=== PATIENT | female | born 1940 | race Caucasian/White ===

== ENCOUNTER 2017-10-30 12:15 | Inpatient (IN) | payer OTHER ==
[2017-10-30] VITALS (14 sets, daily range): BP systolic 108–156; BP diastolic 58–90
[~2017-10-30] VITALS: Ht 157.5 cm; Wt 73.6 kg
[2017-10-30 13:07] LABS: BASOPHIL (%) 0.3 % (0-1); EOSINOPHIL (%) 0.1 % (0-5); HEMATOCRIT 37.9 % (36.0-46.0); HEMOGLOBIN 12.5 G/DL (11.9-15.5); IMMATURE GRANULOCYTE (%) 0.3 % (0.0-0.7); LYMPHOCYTE (%) 7.3 % (15-42); LYMPHOCYTE COUNT 1.1 K/uL (1.0-2.8); MCH 29.8 PG (29.0-34.0); MCV 90.2 FL (83-99); MONOCYTE (%) 2.7 % (3-12); MONOCYTE COUNT 0.4 K/uL (0-0.8); NEUTROPHIL (%) 89.3 % (45-76); NEUTROPHIL COUNT 13.7 K/uL (1.8-6.4); PLATELET COUNT 89 K/uL (156-360); RBC DIS.WIDTH-CV 13.8 % (11.8-14.6); RBC DIS.WIDTH-SD 44.7 % (39-53); WHITE BLOOD COUNT 15.3 K/uL (4.1-10.2)
[2017-10-30 13:17] LABS: ALBUMIN 3.7 g/dL (3.2-4.8); CHLORIDE 105 mEq/L (99-109); POTASSIUM 3.5 mEq/L (3.7-5.4); SODIUM 138 mEq/L (136-147)
[2017-10-30 13:19] LABS: GLUCOSE 164 mg/dL (70-99); TOTAL PROTEIN 6.7 g/dL (6.4-8.3)
[2017-10-30 13:21] LABS: TOTAL BILIRUBIN 0.3 mg/dL (0.0-1.0)
[2017-10-30 13:23] LABS: ALKALINE PHOSPHATASE 83 IU/L (3-129); CREATININE 0.7 mg/dL (0.6-1.3); GFR ESTIMATE (CALCULATED) > 59 mL/min/
[2017-10-30 13:24] LABS: UREA NITROGEN (BUN) 12 mg/dL (9-23)
[2017-10-30 13:25] LABS: AST (GOT) 39 IU/L (2-34)
[2017-10-30 13:26] LABS: ALT (GPT) 11 IU/L (3-49)
[2017-10-30 13:29] LABS: TROP-I INTERPRETATION POSITIVE
[2017-10-30 13:32] LABS: TROPONIN-I 2.76 ng/mL (0.0-0.30)
[2017-10-30 14:47] LABS: INTER. NORMALIZED RATIO 1.2
[2017-10-30 15:37] LABS: AMYLASE 46 IU/L (1-118)
[2017-10-30 15:38] LABS: MAGNESIUM 1.7 mg/dL (1.3-2.7)
[2017-10-30 15:42] LABS: SERUM ETHYL ALCOHOL < 10 mg/dL
[2017-10-30 15:46] LABS: CREATINE KINASE 443 IU/L (1-294); LIPASE 208 U/L (1.0-51.0); TOTAL CK 443 IU/L (1-294)
[2017-10-30 15:48] LABS: PTT 161.8 SEC (25-37)
[2017-10-30 15:52] LABS: CK-MB 54.9 ng/mL (0.0-4.9); CKMB RELATIVE INDEX 12.4 (0.0-3.9)
[2017-10-31] VITALS (16 sets, daily range): BP systolic 101–125; BP diastolic 57–74
[2017-10-31 00:54] LABS: TOTAL CK 1715 IU/L (1-294)
[2017-10-31 01:00] LABS: TROP-I INTERPRETATION POSITIVE
[2017-10-31 01:02] LABS: CKMB RELATIVE INDEX 9.8 (0.0-3.9)
[2017-10-31 01:13] LABS: CK-MB 168.9 ng/mL (0.0-4.9); CREATINE KINASE 1715 IU/L (1-294)
[2017-10-31 01:17] LABS: TROPONIN-I 68.43 ng/mL (0.0-0.30)
[2017-10-31 05:37] LABS: BASOPHIL (%) 0.3 % (0-1); EOSINOPHIL (%) 0.2 % (0-5); HEMATOCRIT 38.9 % (36.0-46.0); HEMOGLOBIN 12.3 G/DL (11.9-15.5); IMMATURE GRANULOCYTE (%) 0.3 % (0.0-0.7); LYMPHOCYTE (%) 13.2 % (15-42); MCH 28.9 PG (29.0-34.0); MCHC 31.6 G/DL (30.0-36.0); MCV 91.5 FL (83-99); MONOCYTE COUNT 1.1 K/uL (0-0.8); NEUTROPHIL COUNT 12.1 K/uL (1.8-6.4); RBC DIS.WIDTH-SD 47.4 % (39-53); RED BLOOD COUNT 4.25 M/uL (3.80-5.20); WHITE BLOOD COUNT 15.4 K/uL (4.1-10.2)
[2017-10-31 05:39] LABS: PLATELET COUNT 146 K/uL (156-360)
[2017-10-31 06:13] LABS: TROP-I INTERPRETATION POSITIVE; TROPONIN-I 61.91 ng/mL (0.0-0.30)
[2017-10-31 06:40] LABS: CHLORIDE 106 MEQ/L (99-109); CREATININE 0.5 MG/DL (0.6-1.3); GFR ESTIMATE (CALCULATED) > 59 mL/min/; GLUCOSE 136 mg/dL (70-99); HDL CHOLESTEROL 36 MG/DL (Desirable>=50); LDL CHOLESTEROL 130 mg/dL (Desirable<100); NON-HDL CHOLESTEROL 147 mg/dL (Desirable<160); SODIUM 136 MEQ/L (136-147); TOTAL CHOLESTEROL 183 mg/dL (Desirable<200); TOTAL CK 1011 IU/L (1-294); TRIGLYCERIDES 85 MG/DL (Normal: <150); UREA NITROGEN (BUN) 9 mg/dL (9-23)
[2017-10-31 06:44] LABS: CREATINE KINASE 1011 IU/L (1-294); POTASSIUM 4.4 MEQ/L (3.7-5.4)
[2017-10-31 10:32] LABS: HEMOGLOBIN A1c (GLYCOHEMOGLOB) 6.1 % (Below 5.7)
[2017-10-31 12:40] LABS: TROP-I INTERPRETATION POSITIVE; TROPONIN-I 38.98 ng/mL (0.0-0.30)
[2017-10-31 12:42] LABS: CREATINE KINASE 743 IU/L (1-294); TOTAL CK 743 IU/L (1-294)
[2017-10-31 14:03] LABS: CKMB RELATIVE INDEX 9.7 (0.0-3.9)
[2017-11-01 04:31] VITALS: BP 125/71
[2017-11-01 07:55] VITALS: BP 98/55
[2017-11-01 11:47] VITALS: BP 128/84
[2017-11-01 14:31] VITALS: BP 137/62
[2017-11-01 22:15] VITALS: BP 108/53
[2017-11-02] VITALS (12 sets, daily range): BP systolic 78–128; BP diastolic 49–88
[2017-11-02 07:07] LABS: CHLORIDE 104 MEQ/L (99-109); CREATININE 0.7 MG/DL (0.6-1.3); GFR ESTIMATE (CALCULATED) > 59 mL/min/; GLUCOSE 119 mg/dL (70-99); POTASSIUM 3.9 MEQ/L (3.7-5.4); SODIUM 139 MEQ/L (136-147); UREA NITROGEN (BUN) 13 mg/dL (9-23)
[2017-11-02 10:02] LABS: CHLORIDE 101 MEQ/L (99-109); CREATININE 0.6 MG/DL (0.6-1.3); GFR ESTIMATE (CALCULATED) > 59 mL/min/; GLUCOSE 156 mg/dL (70-99); HEMOGLOBIN 11.8 G/DL (11.9-15.5); MCH 29.5 PG (29.0-34.0); MCHC 32.8 G/DL (30.0-36.0); POTASSIUM 3.7 MEQ/L (3.7-5.4); RBC DIS.WIDTH-CV 13.6 % (11.8-14.6); RBC DIS.WIDTH-SD 45.2 % (39-53); SODIUM 137 MEQ/L (136-147); UREA NITROGEN (BUN) 13 mg/dL (9-23); WHITE BLOOD COUNT 13.2 K/uL (4.1-10.2)
[2017-11-02 10:04] LABS: PLATELET CLUMPS PRESENT
[2017-11-02 10:07] LABS: THYROTROPIN (TSH) 9.5 MIU/L (0.4-5.5)
[2017-11-02 10:11] LABS: TROP-I INTERPRETATION POSITIVE; TROPONIN-I 14.39 ng/mL (0.0-0.30)
[2017-11-03 00:03] VITALS: BP 122/61
[2017-11-03 05:16] VITALS: BP 117/58
[2017-11-03 07:11] LABS: CHLORIDE 103 MEQ/L (99-109); CREATININE 0.6 MG/DL (0.6-1.3); GFR ESTIMATE (CALCULATED) > 59 mL/min/; GLUCOSE 126 mg/dL (70-99); POTASSIUM 3.5 MEQ/L (3.7-5.4); SODIUM 137 MEQ/L (136-147); UREA NITROGEN (BUN) 11 mg/dL (9-23)
[2017-11-03 07:40] VITALS: BP 126/58
[2017-11-03 12:03] VITALS: BP 123/58
[2017-11-03] MEDS ORDERED: ATORVASTATIN CA80 MG PO (13:02)
[2017-11-03] MEDS ORDERED: LOSARTAN POTASS25 MG PO (13:02)
[2017-11-03] MEDS ORDERED: NITROSTAT0.4 MG SL (13:02)
[2017-11-03] MEDS ORDERED: ELIQUIS5 MG PO (13:02)
[2017-11-03] MEDS ORDERED: FAMOTIDINE20 MG PO (13:02)
[2017-11-03] MEDS ORDERED: LOPRESSOR25 MG PO (13:02)
[2017-11-03] MEDS ORDERED: ASPIR-LOW81 MG PO (13:02)
[2017-11-03] MEDS ORDERED: CLOPIDOGREL75 MG PO (13:02)
== END 2017-11-03 14:30 | disposition home or self-care (01) | DRG 247 ==
LOC: EME 12:15 → CATH 12:32 → EME 12:32 → ENRESERV 13:11 → 4EAST 13:36 → 4WEST 13:36 → 2SOUTH 13:36 → ENRESERV 13:43 → 4WEST 14:00 → ENRESERV 10-31 18:22 → 4EAST 10-31 19:52
PROVIDERS: Emergency Medicine; Internal Medicine; Internal Medicine Cardiovascular Disease
DX: I21.09 ST elevation (STEMI) myocardial infarction involving other coronary artery of anterior wall (principal); I48.0 Paroxysmal atrial fibrillation; I25.10 Atherosclerotic heart disease of native coronary artery without angina pectoris; I25.84 Coronary atherosclerosis due to calcified coronary lesion; K59.00 Constipation, unspecified; F17.210 Nicotine dependence, cigarettes, uncomplicated; Z91.19 Patient's noncompliance with other medical treatment and regimen; Z71.6 Tobacco abuse counseling
CPT/HCPCS: 80048; 80048 91; 80053; 80061; 81003; 82150; 82550; 82550 91; 82553; 83036; 83690; 83735; 83880; 84443; 84484; 85025; 85025 91; 85027; 85347; 85610; 85730; 86850; 86900; 86901; 86920; 87641; 93005; 93306; 94799; 99202; 99281; 99284; C1725; C1760; C1769; C1874; C1887; C1894; G0480; J0282; J0461; J1644; J1650; J2250; J2405; J3010; J7050

== ENCOUNTER → 2017-12-17 | Outpatient (CLI) | payer OTHER ==
[~2017-12-17] MED LIST: ASPIR-LOW81 MG PO; ATORVASTATIN CA80 MG PO; CLOPIDOGREL75 MG PO; ELIQUIS5 MG PO; FAMOTIDINE20 MG PO; LOPRESSOR25 MG PO; LOSARTAN POTASS25 MG PO; NITROSTAT0.4 MG SL
== END | disposition home or self-care (01) ==
LOC: RAD 12-05 14:30
DX: R91.8 Other nonspecific abnormal finding of lung field (principal); I10 Essential (primary) hypertension; E78.5 Hyperlipidemia, unspecified; K21.9 Gastro-esophageal reflux disease without esophagitis; H35.30 Unspecified macular degeneration; E66.3 Overweight; I21.3 ST elevation (STEMI) myocardial infarction of unspecified site; R32 Unspecified urinary incontinence
CPT/HCPCS: 71250